=== PATIENT | male | born 1985 | race Caucasian/White ===

== ENCOUNTER 2025-07-05 22:46 | Emergency (ER) | payer BC ==
[~2025-07-05] VITALS: Ht 182.9 cm; Wt 127.0 kg
[~2025-07-05 22:46] MED LIST: CYCL10 PO; HYDACE5 PO; IBUP800 PO; Norco 5-325 Ta1 EACH PO; PENVK500 PO; RXCLIN PO
[2025-07-05] MEDS ORDERED: DiphenhydrAMINE HCl 50 MG/ML 1ML Vial IV ONE (23:30)
[2025-07-05] MEDS ORDERED: Prochlorperazine Edisylate 10 mg Vial IV ONE (23:30)
[2025-07-05] MEDS ORDERED: NS 1,000 ML IV SCH (23:45)
[2025-07-06] MEDS ORDERED: CYMBALTA60 M1 PO (00:02)
[2025-07-06] MEDS ORDERED: PREG200 PO (00:02)
[2025-07-06] MEDS ORDERED: EZET10 PO (00:03)
[2025-07-06] MEDS ORDERED: Ketorolac Tromethamine 15mg Vial IV ONE (00:35)
[2025-07-06 00:44] VITALS: BP 135/90
== END 2025-07-06 00:49 | disposition home or self-care (01) ==
LOC: ER 22:46
DX: G44.82 Headache associated with sexual activity (principal); F17.210 Nicotine dependence, cigarettes, uncomplicated; Z79.899 Other long term (current) drug therapy
CPT/HCPCS: 70450; 96374; 96375; 99284-25; J0780; J1200; J1885; J7030